=== PATIENT | female | born 1990 | race African-American/Black ===

== ENCOUNTER 2018-11-16 15:56 | Emergency (ER) | payer OTHER ==
[~2018-11-16] VITALS: Ht 165.1 cm; Wt 90.7 kg
[~2018-11-16 15:56] MED LIST: LORTAB 7.5/5001 TA1 PO; NORFLEX100 MG PO; ULTRAM 50MG TAB50 MG PO; ZPAK PO
[2018-11-16] MEDS ORDERED: NORFLEX100 MG PO (18:11)
[2018-11-16] MEDS ORDERED: MOBIC7.5 MG PO (18:11)
[2018-11-16 18:14] VITALS: BP 119/80
== END 2018-11-16 18:10 | disposition home or self-care (01) ==
LOC: ER 15:56
DX: M54.6 Pain in thoracic spine (principal); G89.29 Other chronic pain